=== PATIENT | male | born 1980 | race Caucasian/White ===

== ENCOUNTER 2024-09-04 16:26 | Emergency (ER) | payer BC, SELFPAY ==
[2024-09-04] VITALS (16 sets, daily range): BP systolic 116–129; BP diastolic 77–97; PULSE 66–85; RESP 18–20; TEMP 36; O2SAT 96–100; BMI 28.7
--- NOTE | 2024-09-04 16:58 | CRLHL7_ITS ---
For Patients: As a result of the Century Cures Act, medical imaging exams and procedure reports are released immediately into your electronic medical record. You may view this report before your referring provider. If you have questions, please contact your health care provider. INDICATION: Chest pain. TECHNIQUE: Chest 2 views. COMPARISON: None. FINDINGS: Lungs: Normal lung volume. No consolidation. Multiple calcified granulomas. Pleura: No pleural effusion or pneumothorax. Heart and Mediastinum: Normal heart size. The great vessels of the thorax are unremarkable. Bones: No acute displaced osseous process. IMPRESSION: No consolidation. Dictated by Dio Meyer MD @ 09/04/2024 5:20:11 PM (Electronically Signed)
--- OUTSIDE RECORDS SUMMARY | 2024-09-04 17:04 | XMS_ITS | Continuity of Care Document ---
Author Organization [facility] Address [address] [place] [address] [address] [address] Problems Condition ICD9 code ICD10 code SNOMED code Start Date End Date S tatus Fall (on) (from) other stairs and steps, initial encounter W10.8XXA Final Results No Results Allergies, adverse reactions, alerts No known allergies and adverse reactions Medications No administered medications reported Vital Signs No vital signs reported Social History No smoking Hx information available
--- OUTSIDE RECORDS SUMMARY | 2024-09-04 17:04 | XMS_ITS | Clinical Summary ---
Author Organization [facility] Address [place], [place] [address] Care Team Providers Care Partner Management Consultant Name Role Phone Ger Hicks MD Primary Care Provider [phone]- [phone] Allergies No known active allergies Medications Medication Sig Dispensed Refills Start Date End Date Status clotrimazole (LOTRIMIN) 1 % creamIndications:Eric orrheic dermatitis Apply topically to affected area(s) 2 times daily. 60 g 09/18/2020 Active ketoconazole 2% shampoo (NIZORAL) 2 % shampooIndications:S eborrheic dermatitis APPLY SHAMPOO TO FACIAL HAIR DAILY UNTIL SYMPTOMS RESOLVE, THEN USE ONCE A WEEK THEREAFTER 120 mL 2 01/28/2024 Active polyethylene glycol-electrolyte (GOLYTELY) 236-22.74-6.74 -5.86 gram suspensionIndication s:Encounter for screening colonoscopy Drink 2 liters (half the bottle) the day before colonoscopy and 2 liters (remaining prep) 6 hours prior to colonoscopy appointment. 4000 mL 03/21/2024 Active Active Problems No known active problems Resolved Problems Problem Noted Date Diagnosed Date Resolved Date Tobacco use 01/20/2015 10/03/2018 Encounters Date Type Department Care Team Description 09/04/2024 Nurse Triage [facility] [address] [place], [place] [id number] Ger Hicks MD Chest Pain from Last 3 Months Immunizations Name Administration Dates Next Due COVID-19 VACCINE SPIKEVAX (M ODERNA 50MCG/0.5ML) 12YO+ PFS 03/21/2024 COVID-19 vaccine (Moderna 100mcg/0.5mL) PF, MDV 02/18/2021,01/21/2021 COVID-19 vaccine (Pfizer-Bio NTech 30mcg/0.3mL) 12YO+ BIVALENT PF, MDV 10/02/2022 Dtap Unspecified Formulation 12/09/2018 Influenza Virus, Unspecified 09/06/2018 Influenza, IIV4 08/29/2021,09/01/2015 Influenza, IIV4 (=>6mos) MDV 08/18/2020 Influenza, Injectable, Mdck, Quadrivalent, W/preservative 08/21/2023,08/15/2022 Influenza,CCIIV4 PRESERV FREE 08/29/2017 Tdap 09/12/2013 Tdap, Unspecified 12/09/2018 Family History Medical History Relation Name Comments Hypertension Father Alzheimer's disease Maternal Grandmother Multiple sclerosis Mother Cancer-prostate Paternal Grandfather Cancer-colon No Family History Heart Disease No Family History Relation Name Status Comments Father Alive Maternal Grandmother Mother Alive Paternal Grandfather Social History Tobacco Use Types Packs/Day Years Used Date Smoking Tobacco: Former Cigarettes 0.5 15.5 1 11/12/1996 - 03/12/2013 Smokeless Tobacco: Never Tobacco Cessation:Counseling Given: Not Answered Comments:vape Alcohol Use Standard Drinks/Week Comments Not Currently 0 (1 standard drink = 0.6 oz pur e alcohol) 5 drinks per week PHQ-2 Answer Date Recorded PHQ-2 TOTAL SCORE 0 03/21/2024 Social Connections Answer Date Recorded Do you often feel lonely or isolated from those around you? 0 03/21/2024 Alcohol Use Answer Date Recorded How often do you have a drink containing alcohol ? 4 10/02/2022 How many drinks containing a lcohol do you have on a typical day when you are drinking? 0 10/02/2022 How often do you have five or more drinks on one occasion? 0 10/02/2022 Financial Resource Strain Answer Date R ecorded Difficulty of Paying Living Expenses 3 03/21/2024 Difficulty of Paying Living Expenses Not on file 03/21/2024 Food Insecurity Answer Date Recorded Do you worry your food will run out before you are able to buy more? 1 03/21/2024 Transportation Needs Answer Date Record ed Does lack of transportation keep you from medica l appointments? 1 03/21/2024 Does lack of transportation keep you from work, meetings or getting things that you need? 1 03/21/2024 Housing Stability Answer Date Recorded What is your housing situation today? 1 03/21/2024 Sex and Gender Information Value Date Recorded Sex Assigned at Not on file Gender Identity Not on file Sexual Orientation Not on file Obstetrics History Last Filed Vital Signs Vital Sign Reading Time Taken Comments Blood Pressure 113/77 03/21/2024 8:48 AM CDT Pulse 70 03/21/2024 8:48 AM CDT Temperature 36.6 ??C (97.9 ??F) 09/16/2020 9:09 AM CS T Respiratory Rate - - Oxygen Saturation 98% 03/21/2024 8:48 AM CDT Inhaled Oxygen Concentration - - Weight 84.3 kg (185 lb 12.8 oz) 03/21/2024 8:48 AM CDT Height 170.6 cm (5' 7.17) 03/21/2024 8:48 AM CD T Body Mass Index 28.96 03/21/2024 8:48 AM CDT Plan of Treatment Health Maintenance Due Date Last Done Comments Colonoscopy through age 75 2023 COVID-19 vaccine series ( season) 2024 03/21/2024, 10/02/2022, 10/26/2021, Additional history exists Influenza for age 9-49 07/06/2024 , 08/15/2022, 08/29/2021, Additional history exists BMI (ht and wt on same day) for age 18+ 03/21/2025 03/21/2024, 10/02/2022, 09/19/2021, Additional history exists Depression screening for age 12+ 03/21/2025 03/21/2024, 03/21/2024, 09/19/2021, Additional history exists Tetanus booster 12/09/2028 12/09/2018, 09/12/2013 Lipids for age 45-75 03/21/2029 03/21/2024, 10/02/2022, 09/19/2021, Additional history exists Tdap Completed 12/09/2018, 09/12/2013 HIV for age 15-65 Completed 10/02/2022 Hepatitis C screening for age 18-79 Completed 10/02/2022 Pneumococcal series for age 6-64 Aged Out No longer eligible based on patient's age to complete this topic Procedures Procedure Name Priority Date/Time Associated Diagnosis Comments LIPID PANEL Routine 03/21/2024 9:30 AM CDT Screening, lipid ANTI HIV 1/2 Routine 10/02/2022 9:46 AM DIRECTOR OF RESEARCH Screening for HIV (human immunodeficiency virus) ANTI HCV Routine 10/02/2022 9:46 AM DIRECTOR OF RESEARCH Need for hepatitis C screening test from Last 3 Months or Most Recently Relevant to Health Maintenance Results * LIPID PANEL (03/21/2024 9:30 AM CDT) CHOLESTEROL,TOTAL 162 100 - 199 mg/dL 03/21/2024 5:11 PM CDT [facility] Comment: Cholesterol, Total Reference Ranges Desirable <200 mg/dL Borderline 200-239 mg/dL High >=240 mg/dL TRIGLYCERIDES 51 <150 mg/dL 03/21/2024 5:11 PM CDT [facility] HDL CHOLESTEROL 42 >40 mg/dL 5:11 PM CDT [facility] NON-HDL CHOLESTEROL 120 <145 mg/dl 03/21/2024 5:11 PM CDT [facility] CHOL/HDL RATIO 3.86 <4.50 03/21/2024 5:11 PM CDT [facility] LDL CHOLESTEROL 110 <=130 mg/dL 03/21/2024 5:11 PM CDT [facility] VLDL CHOLESTEROL 10 <=30 mg/dL 03/21/2024 5:11 PM CDT [facility] PROVIDER ORDERED STATUS RANDOM 03/21/2024 5:11 PM CDT [facility] Blood BLOOD SPECIMEN / Unknown Venipuncture / Unknown 03/21/2024 9:30 AM CDT 03/21/2024 9:30 AM CDT Ger Hicks MD CHEMISTRY [facility] [facility] [address] [place] [address], * ANTI HCV (10/02/2022 9:46 AM DIRECTOR OF RESEARCH) HEPATITIS C ANTIBODY Non-React doyle Non-React doyle 10/02/2022 7:03 PM DIRECTOR OF RESEARCH [facility] Comment:Antibodies to HCV no t detected; does not exclude the possibility of exposure to HCV. Blood BLOOD SPECIMEN / Unknown Venipuncture / Unknown 10/02/2022 9:46 AM DIRECTOR OF RESEARCH 10/02/2022 9:47 AM DIRECTOR OF RESEARCH Ger Hicks MD SEND OUTS Performing Organization Address City/Va Hospital/ZIP Co de Phone Number [facility] [facility] [address] [place] [address], * ANTI HIV 1/2 [29192.0] (10/02/2022 9:46 AM DIRECTOR OF RESEARCH) HIV-1/HIV-2 ANTIBODY Non-Reacti ve Non-Reacti ve 10/02/2022 7:02 PM DIRECTOR OF RESEARCH [facility] Comment:HIV-1 p24 and HIV-1/ HIV-2 Ab not detected. Blood BLOOD SPECIMEN / Unknown Venipuncture / Unknown 10/02/2022 9:46 AM DIRECTOR OF RESEARCH 10/02/2022 9:47 AM DIRECTOR OF RESEARCH Ger Hicks MD SEND OUTS [facility] [facility] [address] [place] [address], from Last 3 Months or Most Recently Relevant to Health Maintenance Care Teams Partner Management Consultant Relationship Specialty Start Date End Date Ger Hicks MD [address] [place] [address] PCP - General Family Practice 03/02/17
--- NOTE | 2024-09-04 17:14 | ED_ITS ---
HPI - Chest Pain General Date Seen: 09/04/24 Chief Complaint: Chest Pain Stated Complaint: Chest tightness Time Seen by Provider: 09/04/24 16:36 Source: patient Mode of arrival: ambulatory Limitations: no limitations History of Present Illness HPI narrative: Patient is a 44-year-old male presenting to the emergency department for chest tightness. He states the symptoms started yesterday around 21:00 about 4 hours after he got his flu shot. Has had flu shot before without the symptoms. Denies ever having symptoms like this before. Pain is midsternal and does not radiate. Quit smoking 4 years ago. No family history of heart disease before the age of 65. Denies associated shortness of breath. Describes the pain as a 2 or 3/10. Deep breaths do not worsen the pain. States it has improved since yesterday. Denies shortness of breath. States is not been affecting his daily activities. Denies lightheadedness, dizziness, weakness, numbness, abdominal pain, diarrhea, constipation, fevers, chills. Is not on any hormonal therapy. No history of cancer or recent surgeries. Denies hemoptysis and unilateral leg swelling. No previous history of blood clots. Is not currently on any medications Related Data Home Medications ?Medication ?Instructions ?Recorded ?Confirmed No Known Home Medications 07/23/24 07/23/24 Allergies Allergy/AdvReac Type Severity Reaction Status Date / Time No Known Drug Allergies Allergy Verified 09/04/24 16:35 Review of Systems Status of ROS Reports: 10 or more systems reviewed and unremarkable except as noted in History and below Exam Narrative Exam Narrative: Const: Well-nourished, Well-developed, in no distress Eyes: PERRL, no conjunctival injection, and symmetrical lids HENT: Atraumatic external nose and ears. Moist mucous membranes. Neck: Symmetric, trachea midline, No thyromegaly. CVS: RRR, No murmurs or gallops. Peripheral pulses 2+ and equal in all extremities RESP: Unlabored respiratory effort. Clear to auscultation bilaterally. GI: Nontender/Nondistended, No rebound or guarding. MSK:Extremities w/o deformity, Normal Active ROM Skin: Warm, Dry. No rashes or lesions. Neuro: Normal Muscle tone, No focal neurological deficits. Psych: Awake, Alert, & Oriented x3. Appropriate mood and affect. Const Vital Signs, click to edit/add: Vital Signs - 24 hr 09/04/24 16:32 09/04/24 17:07 09/04/24 17:23 Temperature 96.8 F L Pulse Rate 66 Pulse Rate [Pulse Oximeter] 85 Respiratory Rate 20 18 Blood Pressure Blood Pressure [Right Upper Arm] 129/97 H 120/77 Pulse Oximetry 100 97 Oxygen Delivery Method Room Air 09/04/24 17:30 09/04/24 17:45 09/04/24 18:00 Temperature Pulse Rate 78 74 66 Pulse Rate [Pulse Oximeter] Respiratory Rate Blood Pressure Blood Pressure [Right Upper Arm] Pulse Oximetry 96 96 97 Oxygen Delivery Method 09/04/24 18:15 09/04/24 18:30 09/04/24 18:45 Temperature Pulse Rate 69 75 84 Pulse Rate [Pulse Oximeter] Respiratory Rate Blood Pressure Blood Pressure [Right Upper Arm] Pulse Oximetry 96 97 97 Oxygen Delivery Method 09/04/24 18:54 09/04/24 19:00 Temperature Pulse Rate 68 67 Pulse Rate [Pulse Oximeter] Respiratory Rate Blood Pressure 116/83 Blood Pressure [Right Upper Arm] Pulse Oximetry 98 98 Oxygen Delivery Method Course Vital Signs Vital signs: Initial Vital Signs Temperature 96.8 F L 09/04/24 16:32 Temperature Source Temporal Artery Scan 09/04/24 16:32 Pulse Rate 85 09/04/24 16:32 Respiratory Rate 20 09/04/24 16:32 Blood Pressure 129/97 H 09/04/24 16:32 Blood Pressure Mean 107 H 09/04/24 16:32 Pulse Oximetry 100 09/04/24 16:32 Oxygen Delivery Method Room Air 09/04/24 16:32 Vital Signs Temperature 96.8 F L 09/04/24 16:32 Pulse Rate 85 09/04/24 16:32 Respiratory Rate 20 09/04/24 16:32 Blood Pressure 129/97 H 09/04/24 16:32 Pulse Oximetry 100 09/04/24 16:32 Oxygen Delivery Method Room Air 09/04/24 16:32 Temperature 96.8 F L 09/04/24 16:32 Pulse Rate 67 09/04/24 19:00 Respiratory Rate 18 09/04/24 17:07 Blood Pressure 116/83 09/04/24 18:54 Pulse Oximetry 98 09/04/24 19:00 Oxygen Delivery Method Room Air 09/04/24 16:32 Medications Administered Medications: Discontinued Medications Generic Name Dose Route Start Last Admin Trade Name Vinh PRN Reason Stop Dose Admin Rabies Immune Globulin 1,665 unit 09/04/24 16:44 09/04/24 16:48 Rabies Immune Globulin 150 Unit/Ml Inj 20 unit/kg (1665 unit) 09/04/24 16:45 Not Given INFILTRATI ONCE ONE Rabies Vaccine 2.5 unit 09/04/24 16:44 09/04/24 16:58 Rabies Vaccine (Rabavert) 2.5 Unit IM 09/04/24 16:45 Not Given .ONCE ONE MDM - Chest Pain MDM Narrative Medical decision making narrative: Patient is a 44-year-old male presenting for chest pain. The differential diagnosis of chest pain is broad and includes common etiologies such as musculoskeletal strain, GERD, pneumonia, etc. More serious etiologies considered include PE, coronary artery disease, pneumothorax, aortic dissection, aortic aneurysm. With otherwise stable vital signs aortic dissection aortic aneurysm seem unlikely. Perc score is 0 so PE can be ruled out. Will do an EKG and troponin for signs of coronary artery disease. Chest x-ray ordered to the presents pneumonia or pneumothorax. Will also order CBC, BMP, COVID/flu/RSV Lab work returned showing no concerning abnormalities. EKG shows no concerning abnormalities. Chest x-ray reviewed by myself the radiologist shows no acute abnormalities. Patient's heart score is 1. Repeat troponin is also within normal limits. COVID/flu/RSV is negative. At this point do not know exactly what is causing his symptoms but I do not see any emergent issues. He is safe for discharge. He is agreeable to this plan. Lab Data Labs: Lab Results 09/04/24 09/04/24 Range/Units 17:21 19:20 WBC 5.62 (4.50-11.00) K/uL RBC 4.75 (4.30-5.90) m/uL Hgb 14.1 (13.5-17.5) gm/dL Hct 40.2 (37.0-53.0) % MCV 85 (80-100) fL MCH 30 (26-34) pg MCHC 35 (32-36) gm/dL RDW Coeff of Lorne 12.0 (11.5-15.5) % Plt Count 167 (140-440) K/uL Neut % (Auto) 59.4 (42.0-72.0) % Lymph % (Auto) 25.8 (20-44) % [place] % (Auto) 13.5 H (0.0-11.0) % Eos % (Auto) 1.1 (0.0-7.0) % Baso % (Auto) 0.2 (0.0-3.0) % Neut # (Auto) 3.34 (1.7-7.0) K/uL Lymph # (Auto) 1.45 (0.90-2.90) K/uL [place] # (Auto) 0.80 (0.00-0.90) K/UL Eos # (Auto) 0.06 (0.00-0.50) K/uL Baso # (Auto) 0.01 (0.00-0.30) K/uL Abs Immat Gran (auto) 0.00 (0.00-0.30) K/uL Imm/Tot Granulo (auto) 0.0 % Sodium 138 (135-149) mmol/L Potassium 3.6 (3.6-5.1) mmol/L Chloride 102 (96-114) mmol/L Carbon Dioxide 27 (20-32) mmol/L Anion Gap 9 (7-15) mEq/L BUN 8 (5-24) mg/dL Creatinine 0.7 (0.5-1.5) mg/dL Estimated Creat Clear 123.28 Estimated GFR 115 ml/min Glucose 85 (60-115) mg/dL Calcium 9.5 (8.4-10.6) mg/dL SARS-CoV-2 (PCR) Negative SARS-CoV-2 (Negative) Influenza Type A (PCR) Negative PCR FLU A (Negative) Influenza Type B (PCR) Negative PCR FLU B (Negative) RSV (PCR) Negative PCR RSV (Negative) POC Troponin I 0.01 0.01 (0.01-0.04) ng/ml Imaging Data Chest x-ray: Attestation: I have reviewed the pertinent imaging results. Radiologist's impression: No consolidation. Dictated by Dio Meyer MD @ 09/04/2024 5:20:11 PM ECG Data Prior ECG tracings: not available for review Interpretation: Normal sinus rhythm with rate of 74 beats per minute, PVC seen, normal intervals, normal axis, no ST or T-wave abnormalities Discharge Plan Discharge Clinical Impression: Atypical chest pain Instructions: Noncardiac Chest Pain (ED) Additional Instructions: I am not sure was is causing your chest pain at this time but based on my exam I do not see any concerning emergent issues. If the symptoms do persist though I recommend following up with the primary care provider for possible outpatient stress test. Return to emergency department for new or worsening symptoms. Prescriptions: No Action No Known Home Medications Follow Up/Referrals: Ger Hicks MD [Primary Care Provider] - Stand Alone Forms: [employer] Info Instructions
[2024-09-04 17:32] LABS: Troponin, Point-of-Care* 0.01 ng/ml (0.01-0.04)
[2024-09-04 17:38] LABS: Chloride* 102 mmol/L (96-114); Sodium* 138 mmol/L (135-149)
[2024-09-04 17:39] LABS: Potassium* 3.6 mmol/L (3.6-5.1)
[2024-09-04 17:41] LABS: Creatinine* 0.7 mg/dL (0.5-1.5); Est. Creatinine Clearance* 123.28; Estimated Glomerular Filt Rate 115 ml/min
[2024-09-04 17:42] LABS: Anion Gap 9 mEq/L (7-15); Blood Urea Nitrogen* 8 mg/dL (5-24); Calcium* 9.5 mg/dL (8.4-10.6); Carbon Dioxide* 27 mmol/L (20-32); Glucose* 85 mg/dL (60-115)
[2024-09-04 17:46] LABS: Basophils Absolute Auto 0.01 K/uL (0.00-0.30); Basophils Percent Auto 0.2 % (0.0-3.0); Eosinophils Absolute Auto 0.06 K/uL (0.00-0.50); Eosinophils Percent Auto 1.1 % (0.0-7.0); Hematocrit 40.2 % (37.0-53.0); Hemoglobin* 14.1 gm/dL (13.5-17.5); Lymphocytes Absolute Auto 1.45 K/uL (0.90-2.90); Lymphocytes Percent Auto 25.8 % (20-44); Mean Corpuscular HGB Conc 35 gm/dL (32-36); Mean Corpuscular Hemoglobin 30 pg (26-34); Mean Corpuscular Volume 85 fL (80-100); Monocytes Percent Auto 13.5 % (0.0-11.0); Neutrophils Absolute Auto 3.34 K/uL (1.7-7.0); Neutrophils Percent Auto 59.4 % (42.0-72.0); Platelet Count* 167 K/uL (140-440); Red Blood Count 4.75 m/uL (4.30-5.90); White Blood Count* 5.62 K/uL (4.50-11.00)
[2024-09-04 17:55] LABS: Slide Review Reflex No
[2024-09-04 18:11] LABS: PCR FLU A Negative PCR FLU A (Negative); PCR FLU B Negative PCR FLU B (Negative); PCR RSV Negative PCR RSV (Negative); SARS PCR* Negative SARS-CoV-2 (Negative)
[2024-09-04 19:35] LABS: Troponin, Point-of-Care* 0.01 ng/ml (0.01-0.04)
== END 2024-09-04 20:09 | disposition home or self-care (01) ==
PROVIDERS: Emergency Provider Student in an Organized Health Care Education/Training Program; PCP Surgery
DX: R07.9 Chest pain, unspecified (principal)
CPT/HCPCS: 36415; 71046; 80048; 84484; 85025; 87631; 93005; 99283; 99284